=== PATIENT | male | born 1965 | race Caucasian/White ===

== ENCOUNTER 2017-02-14 17:23 | Emergency (ER) | payer OTHER ==
[~2017-02-14] VITALS: Ht 175.3 cm; Wt 108.9 kg
[2017-02-14 17:44] VITALS: BP 130/83
--- NOTE | 2017-02-14 19:53 | ED UPPER/LOWER EXTREMITY COMPL ---
History of Present Illness General Chief Complaint: Hand or Wrist Injury Stated Complaint: FISH HOOK IN RIGHT PINKY Source: patient Exam Limitations: no limitations Vital Signs & Intake/Output Vital Signs & Intake/Output Vital Signs Date Time Temp Pulse Resp B/P Pulse O2 O2 Flow FiO2 Ox Delivery Rate 02/14 1744 97.0 96 20 130/83 97 Room Air Room Air Allergies Coded Allergies: No Known Allergies (02/14/17) Reconcile Medications No Known Home Medications Triage Note: PT TO ED WITH FISH HOOK TO RIGHT PINKY FINGER, LAST TETANUS SHOT: 2 YEARS AGO. Triage Nurses Notes Reviewed? yes Onset: Abrupt Duration: constant Timing: single episode today Severity: moderate Severity Numbers: 5 No Modifying Factors: none HPI: Patient presents emergency room with stating that this afternoon patient accidentally embedded a fishhook to the distal aspect of his right fifth digit which he could not remove it. There is one rei at the distal end. Patient's tetanus status up-to-date (ABHIJEET RODRIGUEZ) Past History Travel History Traveled to [facility] past 21 day No Medical History Any Pertinent Medical History? see below for history Neurological: NONE EENT: allergies Cardiovascular: NONE Respiratory: bronchitis Gastrointestinal: NONE Hepatic: NONE Renal: NONE Musculoskeletal: NONE Psychiatric: NONE Endocrine: NONE Blood Disorders: NONE Cancer(s): NONE PLOW HOLDER/Reproductive: NONE Surgical History Surgical History: non-contributory Psychosocial History What is your primary language Slovenian Tobacco Use: Current Daily Use Daily Tobacco Use Amount/Type: => 5 Cigarettes daily ETOH Use: heavy use Illicit Drug Use: denies illicit drug use Family History Hx Contributory? No (ABHIJEET RODRIGUEZ) Review of Systems Review of Systems Constitutional: Reports: no symptoms. EENTM: Reports: no symptoms. Respiratory: Reports: no symptoms. Cardiovascular: Reports: no symptoms. Gastrointestinal/Abdominal: Reports: no symptoms. Genitourinary: Reports: no symptoms. Musculoskeletal: Reports: see HPI. Skin: Reports: see HPI. Neurological/Psychological: Reports: no symptoms. Hematologic/Endocrine: Reports: no symptoms. Immunological: Reports: no symptoms. All Other Systems: Reviewed and Negative (ABHIJEET RODRIGUEZ) Physical Exam Physical Exam General Appearance: no apparent distress, alert, comfortable Neurologic/Tendon: normal sensation, normal motor functions, normal tendon functions, responds to pain, no evidence tendon injury, no pulse deficit Skin: normal color, warm/dry Comments: Well-developed well-nourished no apparent distress. HEENT: Atraumatic, extraocular motion intact Neck: Supple, no lymphadenopathy Back: Nontender Respiratory: No respiratory distress Extremities: No edema, full range of motion Neuro: Alert and oriented x3 Psych: Mood affect normal, normal memory normal judgment. Diagram Hands Front 1) Noted foreign body a fishhook embedded to the superficial aspect of patient 's distal phalange he no active bleeding full active range of motion (ABHIJEET RODRIGUEZ) Progress Differential Diagnosis: arterial insufficiency, compartment syndrome, contusion, dislocation, DVT, fracture, gout, septic arthritis, sprain, tendon injury, FOREIGN BODY RETENTION Plan of Care: Using sterile technique I applied Betadine to the right fifth digit of his hand then using 1% lidocaine approximately 7 mL I was successful and performing digital block to localized fifth digit I then advanced the hook through the skin to visualize the rei and then cut the proximal aspect of the hook to remove rei then retracted the fishhook completely. Peroxide and sterile water was then applied with bacitracin and bandage. Patient tolerated well. Patient was offered x-rays however declined I strongly advised patient to closely observation for infection and advised patient that foreign body can always be retained in if so to return to emergency room patient was aware of this Patient declined pain medications when offered (ABHIJEET RODRIGUEZ) Departure Departure Disposition: HOME OR SELF CARE Condition: Stable Clinical Impression Primary Impression: Fish hook injury of finger of right hand Referrals: TIFFANI DURANT,JANA (PCP/Family) Additional Instructions: As discussed BEGIN to apply bacitracin to the area once a day for the following 4 days. If you note signs of infection redness, pain, swelling, discharge return to the emergency room. Begin [id number] ibuprofen for pain and inflammation Departure Forms: Customer Survey General Discharge Information Prescriptions: Current Visit Scripts No Known Home Medications (ABHIJEET RODRIGUEZ) PA/[employer] Co-Sign Statement Statement: ED Attending supervision documentation- [] I saw and evaluated the patient. I have also reviewed all the pertinent lab results and diagnostic results. I agree with the findings and the plan of care as documented in the PA's/[employer]'s documentation. [X] I have reviewed the ED Record and agree with the PA's/[employer]'s documentation. [] Additions or exceptions (if any) to the PAs/[employer]OCIATE's note and plan are summarized below: [] (CLARICE DURANT,CHRIS)
== END 2017-02-14 20:40 ==
LOC: ERH 17:23
DX: S60.551A Superficial foreign body of right hand, initial encounter (principal); W26.9XXA Contact with unspecified sharp object(s), initial encounter; Y93.9 Activity, unspecified; Y92.9 Unspecified place or not applicable
CPT/HCPCS: 99282